=== PATIENT | female | born 1960 | race African-American/Black ===

== ENCOUNTER 2017-09-23 08:34 | Emergency (ER) | payer OTHER ==
[~2017-09-23] VITALS: Ht 162.6 cm; Wt 70.3 kg
[2017-09-23 08:38] VITALS: TEMP 36.9; Ht 162.6 cm; Wt 70.3 kg
[2017-09-23] MEDS ORDERED: CEFTRIAXONE SOD INJ 1 GM ADDVIAL IV STA (09:13)
[2017-09-23] MEDS ORDERED: XYLOCAINE 1%/SOD BICARB 20 ML VIAL INFIL ONE (09:15)
[2017-09-23 09:37] LABS: BASO % 0.6 %; BASO ABS # 0.03 K/uL (0-0.2); COMPLETE YES; EOS % 4.8 %; HEMATOCRIT 40.5 % (37-47); IG% 0.2 %; LYMPH % 27.9 %; LYMPH ABS # 1.39 K/uL (1.2-3.4); MEAN CELL VOLUME 97.6 fL (80-100); MEAN CORPUSCULAR HGB CONC 33.8 g/dl (32-36); MEAN PLATELET VOLUME 10.6 fL (7.4-10.4); MONO % 8.4 %; NEUT % 58.1 %; PLATELET COUNT 268 K/uL (130-400); RED BLOOD COUNT 4.15 M/uL (4.2-5.4); WHITE BLOOD COUNT 4.99 K/uL (4.8-10.8)
[2017-09-23] MEDS ORDERED: ONDANSETRON INJ 2 MG/ML 2 ML VIAL IV STA (10:04)
[2017-09-23] MEDS ORDERED: MoRPHine SULFATE 2 MG/ML CARP IV STA (10:04)
[2017-09-23 10:06] LABS: BUN/CREATININE RATIO 13.5 (10-20); CREATININE 0.94 mg/dl (0.60-1.20); POTASSIUM 3.7 mmol/L (3.5-5.1)
[2017-09-23 11:09] VITALS: BP 140/90; PULSE 65; O2SAT 97
[2017-09-23] MEDS ORDERED: HYDR-5688 PO (11:10)
[2017-09-23] MEDS ORDERED: CEPH500C2 PO (11:10)
[2017-09-23] MEDS ORDERED: SULF800T23 PO (11:10)
--- NOTE | 2017-09-23 14:01 | EMERGENCY ROOM VISIT NOTE ---
ED Visit Note First contact with patient: 09:01 CHIEF COMPLAINT: Left leg pain. HISTORY OF PRESENT ILLNESS: Ms. Calixto is an 57-year-old black female who ambulates into the ED who ambulates into the ED complaining of left lateral lower leg pain. Patient reports she noticed a small "mole"-like lesion on the lateral aspect of the left lower leg many months ago. Over the last week and a half she reports it has been becoming tender and getting larger. Yesterday she noted that there was redness around the lesion and her skin felt hot. Currently she describes her discomfort of a fire like sensation at the location and immediately surrounding area of her skin lesion. She rates her discomfort 7 /10. Her pain is nonradiating. Her pain worsens with palpation of the lesion and the surrounding area of skin. She has not identified any alleviating factors related to the pain. She reports she has not taken medication for pain prior to arrival at the hospital. Associated with her pain she does reports she 's been having chills but no ghanshyam fevers and has had a decreased appetite. She denies other skin eruptions, other skin color changes, upper respiratory tract symptoms, shortness of breath, chest pain, abdominal pain, nausea, vomiting, left leg weakness/numbness/tingling. REVIEW OF SYSTEMS: As noted above in History of Present Illness; all body systems reviewed the patient and found to be negative unless noted above otherwise. PAST MEDICAL HISTORY: Status post section. CURRENT MEDICATIONS: Patient denies. ALLERGIES TO MEDICATION: Iodine, IV contrast. SOCIAL HISTORY: Patient is currently employed; she feels safe in her home environment; she admits to tobacco and alcohol use. PHYSICAL EXAM: Vital Signs: Date Time Temp Pulse Resp B/P (MAP) Pulse Ox O2 Delivery O2 Flow Rate FiO2 09/23/17 11:09 65 18 140/90 97 Room Air 09/23/17 08:38 36.9 72 16 132/84 99 Room Air General: 57 year-old female in mild to moderate distress due to pain, nontoxic appearing, afebrile and hemodynamically stable. Neurological: Awake, alert and oriented to person, place and time. Answering questions appropriately and following commands. Normal gait. Skin: Warm, dry and pink. Left Lower Leg: Over the lateral aspect of the mid left lower leg patient has a 1.8 cm abscess with a surrounding area of erythema. The area is indurated and the lesion is fluctuant.. There is no pointing, drainage and no lymphangitis.. Thorax: Lungs sounds are clear to auscultation and equal bilaterally with symmetrical chest wall movement. Abdomen: Flat, soft and nontender. Positive bowel sounds in all quadrants. No guarding or rigidity. Left Lower Leg: Lesion as noted above. No tenderness in the hip, thigh, knee, ankle or foot. Throughout the leg the skin was warm and pink and capillary refill is brisk. She was able to distinguish light sensations through all dermatomes. Full range of motion of the hip, ankles and toes against resistance. ED COURSE: Patient is assessed as noted above. Patient's medication list was reviewed. Laboratory Testing: Test 09/23/17 09:25 Range/Units White Blood Count 4.99 4.8-10.8 K/uL Red Blood Count 4.15 4.2-5.4 M/uL Hemoglobin 13.7 12.0-16.0 g/dL Hematocrit 40.5 37-47 % Mean Corpuscular Volume 97.6 80-100 fL Mean Corpuscular Hemoglobin 33.0 25-34 pg Mean Corpuscular Hemoglobin Concent 33.8 32-36 g/dl Platelet Count 268 130-400 K/uL Mean Platelet Volume 10.6 7.4-10.4 fL Neutrophils (%) (Auto) 58.1 % Lymphocytes (%) (Auto) 27.9 % Monocytes (%) (Auto) 8.4 % Eosinophils (%) (Auto) 4.8 % Basophils (%) (Auto) 0.6 % Neutrophils # (Auto) 2.90 1.4-6.5 K/uL Lymphocytes # (Auto) 1.39 1.2-3.4 K/uL Monocytes # (Auto) 0.42 0.11-0.59 K/uL Eosinophils # (Auto) 0.24 0-0.5 K/uL Basophils # (Auto) 0.03 0-0.2 K/uL RDW Standard Deviation 45.9 36.4-46.3 fL RDW Coefficient of Variation 12.9 11.5-14.5 % Immature Granulocyte % (Auto) 0.2 % Immature Granulocyte # (Auto) 0.01 0.00-0.02 K/uL Sodium Level 139 136-145 mmol/L Potassium Level 3.7 3.5-5.1 mmol/L Chloride Level 104 98-107 mmol/L Carbon Dioxide Level 29 21-32 mmol/L Anion Gap 6.0 3-11 mmol/L Blood Urea Nitrogen 13 7-18 mg/dl Creatinine 0.94 0.60-1.20 mg/dl Est Creatinine Clear Calc Drug Dose 65.1 ml/min Estimated GFR () 79.2 Estimated GFR (Non- 68.3 BUN/Creatinine Ratio 13.5 10-20 Random Glucose 93 70-99 mg/dl Calcium Level 9.0 8.5-10.1 mg/dl Chemistry Specimen Hemolysis Wound cultures pending. Patient was given 2 mg of morphine IV for pain and 4 mg of Zofran IV. Additionally she received 1 g of Rocephin IV for antibiotic coverage. Incision and Drainage: Verbal consent was obtained after the risks and benefits were explained. The skin was prepped with betadine and a sterile field set. The area surrounding the abscess was anesthetized with 4.8 ml of 1% buffered lidocaine. The abscess cavity was incised with a scalpel. Approximately 2 mL of purulent material was drained from the abscess and more was expressed. As I continue to express drainage decreased and purulence but then the appearance had the consistency of sebaceous cyst. Aerobic cultures were obtained and are currently pending. The abscess cavity was sharply dissected with iris scissors to break up loculations and a small amount of additional purulent drainage was expressed. Copious irrigation was performed using sterile saline. The abscess cavity was cleaned out with a cotton tip applicator dipped in Betadine. Hemostasis was achieved. Iodoform gauze packing was inserted into the abscess. A sterile dressing was applied. No complications and the patient tolerated the procedure well. Patient was reassessed multiple times during her stay in the emergency department. Patient was educated about her condition and instructed on her treatment plan; she verbalized understanding and agreement with this plan. CLINICAL IMPRESSION: Abscess of the left lower leg. Possible infected sebaceous cyst. DISPOSITION: Patient discharged to home in stable condition accompanied by her sister; prior to departure she was reassessed and subjectively reported she was feeling much better and rated her discomfort 2/10. PLAN: Patient was given prescriptions for Keflex and Bactrim for 10 days and instructed on her use. Patient is placed in a sliding pain scale of ibuprofen, acetaminophen and [place] ; her name was checked on state database and no red flags were noted and she was given appropriate narcotic precautions. Patient is to follow-up with his family physician or return to ED in 36-48 hours hours for recheck and possible removal of his packing. Patient was encouraged return ED for worsening signs of infection, uncontrolled pain or any new/concerning symptoms.
== END 2017-09-23 11:28 | disposition home or self-care (01) ==
LOC: C.EDB 08:35
DX: L02.416 Cutaneous abscess of left lower limb (principal); F17.200 Nicotine dependence, unspecified, uncomplicated; Z98.890 Other specified postprocedural states

== ENCOUNTER 2017-09-25 15:34 | Emergency (ER) | payer OTHER ==
[~2017-09-25] VITALS: Ht 162.6 cm; Wt 70.4 kg
[~2017-09-25 15:34] MED LIST: CEPH500C2 PO; HYDR-5688 PO; SULF800T23 PO
[2017-09-25 15:39] VITALS: BP 129/84; PULSE 68; TEMP 36.7; O2SAT 99; Ht 162.6 cm; Wt 70.4 kg
--- NOTE | 2017-09-26 11:02 | EMERGENCY ROOM VISIT NOTE ---
ED Visit Note First contact with patient: 15:41 Chief Complaint: Wound recheck and packing removal. History of Present Illness: Ms. Calixto is an 57-year-old white female who ambulates into the ED requesting a wound check and packing removal from an abscess. Patient reports she was here 2 days ago and had an I&D procedure performed on a left lower leg abscess. She was placed on antibiotic coverage. Patient reports since the I&D procedure she is feeling much better. He reports she is pain-free. She has noted that there is decrease in redness and swelling in the area of the abscess. She feel like the abscess is healing well. She has not fevers, chills, sweats, red streaking. Review of Systems: As noted above in history of present illness. Physical Examination: Vital Signs: Date Time Temp Pulse Resp B/P (MAP) Pulse Ox O2 Delivery O2 Flow Rate FiO2 09/25/17 15:39 36.7 68 18 129/84 99 Room Air GENERAL: 57-year-old female in no acute distress, nontoxic-appearing, afebrile and hemodynamically stable. NEUROLOGICAL: Awake, alert and oriented to person, place and time. Answering questions appropriately and following commands. Normal gait. LEFT LOWER LEG: Over the lateral aspect of the leg the patient's abscess shows reversible of all redness with just some mild swelling. The packing was removed easily and there were no additional drainage of purulent material. I did palpate the area was slightly tender but was not explained to express any additional purulent material. ED Course: Patient is assessed as noted above. Patient's medication list was reviewed. Packing was removed from the patient's abscess without difficulty. After evaluation it was recovered with a clean bandage. Patient was educated about today's findings and instructed on her treatment plan ; she verbalized understanding and agreement with this plan and Clinical Impression: Wound recheck. Packing removal. Disposition: Patient discharged home in stable condition; prior to departure she was reassessed and continued to be pain and symptom-free. Plan: Patient was encouraged to continue her current medications as needed for pain. Patient was encouraged to continue her antibiotics until completed. Patient was encouraged to follow-up with family physician or return to the ED for recheck at the end of the course of the antibiotics. Patient was encouraged return ED for any signs of worsening infection or any new /concerning symptoms.
== END 2017-09-25 15:58 | disposition home or self-care (01) ==
LOC: C.EDB 15:35 → C.EDD 15:58
DX: Z48.02 Encounter for removal of sutures (principal)